=== PATIENT | male | born 1990 ===

== ENCOUNTER → 2018-09-19 14:13 | Outpatient (REF) | payer OTHER, SELFPAY ==
[2018-09-19 14:29] LABS: Add Manual Diff / Slide Review NO; Basophils Percent Auto 0.5 % (0-2); Eosinophils Percent Auto 1.4 % (2-4); Hematocrit 42.5 % (41-53); Hemoglobin 14.5 g/dL (13.5-17.5); Lymphocytes Percent Auto 29.8 % (25-40); Mean Corpuscular HGB Conc 34.2 % (30-36); Mean Corpuscular Hemoglobin 30.7 PG (26-34); Mean Corpuscular Volume 89.6 fL (80-100); Monocytes Percent Auto 6.3 % (3-14); Neutrophils Absolute Auto 3600 /uL (3000-5900); Platelet Count 187 X10^3/uL (150-400); Red Blood Cell Count 4.74 X10^6/uL (4.5-5.9); Red Cell Distribution Width 12.6 % (11.6-14.8); White Blood Cell Count 5.9 X10^3/uL (4.5-11.0)
[2018-09-19 14:46] LABS: Alanine Aminotransferase 36 IU/L (21-72); Albumin 4.5 g/dL (3.5-5.0); Alkaline Phosphatase 58 U/L (38-126); Aspartate Aminotransferase 46 IU/L (17-59); BUN Creatinine Ratio 21.3 (6-22); Bilirubin Total 1.2 mg/dL (0.2-1.3); Blood Urea Nitrogen 17 mg/dL (9-20); Calcium 9.4 mg/dL (8.4-10.2); Carbon Dioxide 31 mmol/L (22-32); Chloride 101 mmol/L (98-107); Estimated Glomerular Filt Rate > 60.0 mL/min (>60); Globulin 2.2 g/dL (1.7-4.1); Glucose 123 mg/dL (70-100); HEMOLYSIS < 15 (0-50); Potassium 4.1 mmol/L (3.4-5.1); Sodium 143 mmol/L (137-145); Total Protein 6.7 g/dL (6.3-8.2)
[2018-09-19 15:16] LABS: Prostate Specific Antigen 0.514 ng/mL (0.10-4.00)
[2018-09-23 15:29] LABS: Estradiol 18 pg/mL (< 40)
== END ==
LOC: LAB 14:13
PROVIDERS: Visit Provider Nurse Practitioner Acute Care
DX: M94.0 Chondrocostal junction syndrome [Tietze] (principal); M41.9 Scoliosis, unspecified; R94.5 Abnormal results of liver function studies
CPT/HCPCS: 80053; 82670; 84153; 84403; 85025

== ENCOUNTER → 2018-11-27 18:46 | Outpatient (REF) | payer OTHER, SELFPAY ==
[2018-11-27 19:07] LABS: Add Manual Diff / Slide Review NO; Basophils Percent Auto 0.3 % (0-2); Eosinophils Percent Auto 1.2 % (2-4); Hematocrit 43.7 % (41-53); Hemoglobin 14.9 g/dL (13.5-17.5); Lymphocytes Percent Auto 22.1 % (25-40); Mean Corpuscular HGB Conc 34.1 % (30-36); Mean Corpuscular Hemoglobin 31.1 PG (26-34); Mean Corpuscular Volume 91.1 fL (80-100); Monocytes Percent Auto 7.8 % (3-14); Neutrophils Absolute Auto 4300 /uL (1500-7000); Neutrophils Percent Auto 68.6 % (50-75); Platelet Count 203 X10^3/uL (150-400); Red Cell Distribution Width 13.2 % (11.6-14.8); White Blood Cell Count 6.3 X10^3/uL (4.5-11.0)
[2018-11-27 19:16] LABS: Alanine Aminotransferase 27 IU/L (21-72); Albumin 4.6 g/dL (3.5-5.0); Albumin Globulin Ratio 1.8 (1.0-2.8); Alkaline Phosphatase 59 U/L (38-126); Amylase 38 U/L (30-110); Aspartate Aminotransferase 52 IU/L (17-59); Bilirubin Total 2.2 mg/dL (0.2-1.3); Blood Urea Nitrogen 12 mg/dL (9-20); Calcium 9.4 mg/dL (8.4-10.2); Carbon Dioxide 30 mmol/L (22-32); Chloride 101 mmol/L (98-107); Estimated Glomerular Filt Rate > 60.0 mL/min (>60); Globulin 2.5 g/dL (1.7-4.1); Glucose 89 mg/dL (70-100); HEMOLYSIS < 15 (0-50); Potassium 4.4 mmol/L (3.4-5.1); Sodium 145 mmol/L (137-145); Total Protein 7.1 g/dL (6.3-8.2)
[2018-11-27 19:22] LABS: Hemoglobin A1C% w Est Avg Glu 5.2 % (4.0-6.0)
[2018-11-27 19:32] LABS: Erythrocyte Sedimentation Rate 1 MM/HR (0-15)
[2018-11-29 14:14] LABS: PSA, Total 0.2 ng/mL (< 4.1)
== END ==
LOC: LAB 18:46
PROVIDERS: Visit Provider Nurse Practitioner Acute Care
DX: E29.1 Testicular hypofunction (principal); R53.83 Other fatigue; R53.1 Weakness; R51 Headache
CPT/HCPCS: 80053; 82150; 83036; 84153; 84154; 85025; 85651